=== PATIENT | female | born 1990 | race Caucasian/White ===

== ENCOUNTER 2021-10-13 18:32 | Emergency (ER) | payer OTHER, SELFPAY ==
[2021-10-13 18:41] VITALS: BP 138/95; PULSE 90; RESP 16; TEMP 36.9; O2SAT 99
--- NOTE | 2021-10-13 18:49 | ED.URI ---
HPI - URI/Sore Throat General Chief Complaint: Upper Respiratory Infection Stated Complaint: ear pain/sore throat/cp/cough Time Seen by Provider: 10/13/21 18:49 Source: patient Mode of arrival: ambulatory Limitations: no limitations History of Present Illness HPI Narrative: Ashley Genao is a 31 yo female with sinus congestion and headache cough congestion states she feels poorly this started on Monday night. She had diagnosed COVID 3 weeks ago when she had little cough and loss of taste but she says she does not feel as bad as she does now and she recovered after she had couple days of symptoms. She smokes cigarettes Related Data Allergies Allergy/AdvReac Type Severity Reaction Status Date / Time No Known Allergies Allergy Verified 04/11/17 15:38 Review of Systems Review of Systems: CONSTITUTIONAL: Denies fever, chills, sweats. Fatigue and body aches EYES: Denies visual changes, redness, discharge. ENT: Has rhinorrhea, has congestion, has sore throat, otalgia. CARDIOVASCULAR: Denies chest pain, palpitations, edema. RESPIRATORY: Denies dyspnea, wheezing, cough GASTROINTESTINAL: Denies abdominal pain, nausea, vomiting, diarrhea. GENITOURINARY: Denies dysuria, hematuria, abnormal discharge SKIN: Denies rash or itching. NEUROLOGIC: Denies numbness, or focal weakness. PSYCHIATRIC: Denies anxiety or depression. [facility] Past Medical History Medical History No acute medical problems Social History Social History (Updated 10/13/21 @ 19:00 by Nadja Perez CNP) Smoking status: Current every day smoker Tobacco type: cigarettes Alcohol intake: current Comments At time of signature, I agree with nursing past medical, surgical, social and family history. There is no relevant family history pertinent to the presenting complaint. Patient discussed having elevated blood pressure and follow-up with primary care physician Exam Narrative: GENERAL: This is a well-nourished, well-developed patient, in mild distress. HEAD: normocephalic, atraumatic. EYES: Sclera clear/white. Vision is grossly intact. EARS: External ears normal, auditory canals clear and without drainage, TMs normal without perforation. Hearing grossly intact. NOSE: External nose normal with nasal discharge, nares with redness, rhinorrhea. THROAT: Mucous membranes moist, posterior pharynx erythema NECK: Neck supple, non-tender CARDIOVASCULAR: Regular rate and rhythm without murmurs, gallops, or rubs. RESPIRATORY: Clear to auscultation. Breath sounds equal bilaterally. No wheezes, rales, or rhonchi. GASTROINTESTINAL: Abdomen soft, SKIN: warm, intact with no suspicious lesions or rash, good texture and turgor. NEURO: awake, alert, and oriented to person, place and time. There were no obvious focal neurologic abnormalities. Steady gait EXTREMITIES: Normal range of motion. BACK: Nontender without deformity Course Course Emergency Course: Patient comes to [facility] with complaints of congestion sore throat and feeling poorly she states feels she feels like her head is going to explode. She had COVID 3 weeks ago and recovered Patient swab for flu- negative Started on Mucinex, 4 days of prednisone Work excuse given Level of Care: Express Care Visit Vital Signs Vital signs: Vital Signs Temperature 98.4 F 10/13/21 18:41 Pulse Rate 90 10/13/21 18:41 Respiratory Rate 16 10/13/21 18:41 Blood Pressure 138/95 H 10/13/21 18:41 Pulse Oximetry 99 10/13/21 18:41 Temperature 98.4 F 10/13/21 18:41 Pulse Rate 90 10/13/21 18:41 Respiratory Rate 16 10/13/21 18:41 Blood Pressure 138/95 H 10/13/21 18:41 Pulse Oximetry 99 10/13/21 18:41 MDM - URI/Sore Throat Differential Diagnosis Differential diagnosis: Likely upper respiratory infection, otitis media, sinusitis, bronchitis, pharyngitis and other Lab Data Labs: Influenza A Screen Negative
== END 2021-10-13 19:20 | disposition home or self-care (01) ==
PROVIDERS: Emergency Provider Nurse Practitioner; PCP Family Medicine
DX: J32.9 Chronic sinusitis, unspecified (principal); F17.210 Nicotine dependence, cigarettes, uncomplicated; Z86.16 Personal history of COVID-19
CPT/HCPCS: 87804; 99213; G0463

== ENCOUNTER 2023-06-12 17:31 | Emergency (ER) | payer OTHER, SELFPAY ==
[2023-06-12] VITALS (10 sets, daily range): BP systolic 130–131; BP diastolic 76–102; PULSE 66–86; RESP 11–24; TEMP 36.2; O2SAT 98–100
--- NOTE | ~2023-06-12 | CT_ITS ---
EXAMINATION: CT abdomen pelvis w con DATE: 06/12/2023 21:54 INDICATION: Epigastric abdominal pain. Nausea, vomiting, and diarrhea. TECHNIQUE: Computed tomography (CT) of the abdomen and pelvis was performed with 100 mL Omnipaque 350 intravenous contrast. Automated exposure control and iterative reconstruction technique were employe d. The dose-length product was 1025.22 mGy-cm. COMPARISON: None. FINDINGS: The visualized portions of the lung bases demonstrate mild atelectasis. No pleural effusion . The heart size is normal. No pericardial effusion. The liver, gallbladder, spleen, pancreas, adrena l glands, and kidneys are normal. There are no dilated loops of bowel. The appendix is normal. There are no pathologically enlarged lymph nodes. There is no free intraperitoneal fluid. There is a small umbilical hernia containing fat. There is mild thoracic and lumbar spondylosis. IMPRESSION: 1. Small umbilical hernia containing fat. Reviewed, dictated and finalized at location E.
--- NOTE | 2023-06-12 20:37 | ED.ABDPAIN ---
HPI - Abdominal Pain General Chief Complaint: Abdominal Pain Stated Complaint: abd pain, N/V/D Time Seen by Provider: 06/12/23 20:31 History of Present Illness HPI narrative: Patient presents to the emergency department complaining of epigastric pain. Pain present for the past couple days. Gradual getting worse. Today she had nausea and vomiting just prior to arrival. Denies fevers and chills. Patient overall healthy. Denies sick contacts. She appears uncomfortable Related Data Allergies Allergy/AdvReac Type Severity Reaction Status Date / Time No Known Allergies Allergy Verified 04/11/17 15:38 Review of Systems Review of Systems: Review of systems negative except what is documented in the HPI [facility] Past Medical History Medical History No acute medical problems Social History Social History (Updated 10/13/21 @ 19:00 by Nadja Perez, PRODUCTION SPECIALIST) Smoking status: Current every day smoker Tobacco type: cigarettes Alcohol intake: current Exam Narrative: GENERAL: Well-appearing, well-nourished, and in no acute distress. Uncomfortable HEAD: Normocephalic, atraumatic. EYES: PERRLA and EOMI. ENT: Nares clear, no rhinorrhea or epistaxis. Mucous membranes moist. NECK: Supple. CHEST: Clear to auscultation. No respiratory distress. HEART: Regular rate and rhythm. ABDOMEN: Soft, nontender, nondistended. EXTREMITIES: Normal range of motion. No edema. SKIN: Warm, dry, no rash. NEURO: No focal deficits. Alert and oriented x3. PSYCH: Normal mood and affect. Course Course Emergency Course: Differential diagnosis includes but not limited to pancreatitis, acute cholecystitis, urinary tract infection, gastritis Vital Signs Vital signs: Vital Signs Temperature 36.2 C L 06/12/23 18:16 Pulse Rate 72 06/12/23 18:16 Respiratory Rate 20 06/12/23 18:16 Blood Pressure 131/76 06/12/23 18:16 Pulse Oximetry 100 06/12/23 18:16 Oxygen Delivery Room Air 06/12/23 18:16 Temperature 36.2 C L 06/12/23 18:16 Pulse Rate 76 06/12/23 21:34 Respiratory Rate 23 H 06/12/23 21:34 Blood Pressure 131/102 H 06/12/23 21:34 Pulse Oximetry 100 06/12/23 21:34 Oxygen Delivery Room Air 06/12/23 21:34 MDM - Abdominal Pain MDM Narrative Medical decision making narrative: Labs ordered and reviewed. CBC and CMP grossly unremarkable. Patient was slightly tachypneic in triage however this has improved. CT abdomen pelvis also negative for acute pathology. Only slight umbilical hernia noted. Shared decision making with patient regarding home medications and return precautions Lab Data 06/12/23 21:06 06/12/23 21:06 Labs: Lab Results 06/12/23 Range/Units 21:06 WBC 9.2 (4.5-10.0) K/mm3 RBC 4.92 (4.2-5.4) M/mm3 Hgb 15.3 H (12.0-15.0) g/dL Hct 45.4 (37.0-47.0) % MCV 92.3 (80-100) fl MCH 31.1 (26-34) pg MCHC 33.7 (32-36) g/dl RDW 12.5 (11.5-14.5) % Plt Count 350 (150-375) k/mm3 MPV 9.3 (7.4-10.4) fl Immature Gran % (Auto) 0.3 (0-0.5) % Neut % (Auto) 88.3 H (45.5-73.1) % Lymph % (Auto) 9.4 L (18.3-44.2) % Moore % (Auto) 1.8 L (2.6-8.5) % Eos % (Auto) 0.0 (0-4.4) % Baso % (Auto) 0.2 (0.2-1.2) % Lymph # (Auto) 0.86 L (0.9-3.2) K/mm3 Moore # (Auto) 0.2 (0.1-0.6) K/mm3 Eos # (Auto) 0.0 (0-0.3) K/mm3 Baso # (Auto) 0.0 (0.0-0.1) K/mm3 Abs Immat Gran (auto) 0.03 (0.00-0.031) K/mm3 Absolute Neuts (auto) 8.1 H (1.3-6.7) K/mm3 Absolute Nucleated RBC 0.0 (0.0-0.012) K/mm3 Nucleated RBC % 0.0 (0.0-0.2) % Sodium 139 (137-145) mmol/L Potassium 4.0 (3.4-5.0) mmol/L Chloride 102 (98-107) mmol/L Carbon Dioxide 23 (22-30) mmol/L Anion Gap 14 (8-16) mmol/L BUN 11 (7-17) mg/dL Creatinine 0.70 (0.7-1.0) mg/dL Estim Creat Clear Calc 120 ml/min Estimated GFR > 60 (59 - ) Glucose 121 H (65-110) mg/dL Calcium 10.5 H
[2023-06-12] MEDS: ONDANSETRON INJ 4 MG/2 ML VIAL IV PUSH (21:05)
[2023-06-12 21:12] LABS: Basophils Percent Auto 0.2 % (0.2-1.2); Hematocrit 45.4 % (37.0-47.0); Hemoglobin 15.3 g/dL (12.0-15.0); Immature Granulocyte Absolute 0.03 K/mm3 (0.00-0.031); Immature Granulocyte Percent A 0.3 % (0-0.5); Lymphocytes Absolute Auto 0.86 K/mm3 (0.9-3.2); Lymphocytes Percent Auto 9.4 % (18.3-44.2); Mean Corpuscular HGB Conc 33.7 g/dl (32-36); Mean Corpuscular Hemoglobin 31.1 pg (26-34); Mean Corpuscular Volume 92.3 fl (80-100); Mean Platelet Volume 9.3 fl (7.4-10.4); Monocytes Absolute Auto 0.2 K/mm3 (0.1-0.6); Monocytes Percent Auto 1.8 % (2.6-8.5); Neutrophils Absolute Auto 8.1 K/mm3 (1.3-6.7); Neutrophils Percent Auto 88.3 % (45.5-73.1); Platelet Count Result 350 k/mm3 (150-375); Red Blood Count 4.92 M/mm3 (4.2-5.4); Red Cell Distribution Width 12.5 % (11.5-14.5); White Blood Count 9.2 K/mm3 (4.5-10.0)
[2023-06-12 21:22] LABS: Alanine Aminotransferase 31 U/L (6-35); Alkaline Phosphatase 56 U/L (38-126); Anion Gap 14 mmol/L (8-16); Aspartate Amino Transferase 25 U/L (14-36); Bilirubin,Total 0.5 mg/dL (0.2-1.3); Blood Urea Nitrogen 11 mg/dL (7-17); Calcium 10.5 mg/dL (8.4-10.2); Carbon Dioxide 23 mmol/L (22-30); Chloride 102 mmol/L (98-107); Estimated CRCL calculation 120 ml/min; Estimated Glomerular Filt Rate > 60; Glucose 121 mg/dL (65-110); Lipase 85 U/L (23-300); Sodium 139 mmol/L (137-145)
[2023-06-12] MEDS: IBUPROFEN 600 MG TABLET PO (22:01)
[2023-06-12] MEDS: FAMOTIDINE 20 MG TABLET PO (22:01)
[2023-06-12] MEDS: ONDANSETRON HCL ODT 4 MG TABLET PO (22:01)
[2023-06-12] MEDS: SODIUM CHLORIDE 0.9% IV 1,000 ML 999 ML IV CONT (22:01)
[2023-06-12] MEDS: MORPHINE SULFATE (*CRX) 2 MG/ML INJ IV PUSH (23:04)
[2023-06-12] MEDS: METOCLOPRAMIDE HCL INJ 10 MG/2 ML VIAL IV PUSH (23:04)
--- NOTE | 2023-06-12 23:15 | PC.NURSE ---
report and care given to NAWAF Emmanuel. all questions answered.
[2023-06-13 00:05] LABS: Appearance Urine Clear (Clear); Bacteria Urine None Seen /hpf; Bilirubin Urine Negative (Negative); Blood Urine 2+ (Negative); Color Urine Yellow (Yellow); Glucose Urine UA Negative (Negative); Ketones Urine 4+ mg/dL (Negative); Leukocyte Esterase Ur Negative LEU/UL (Negative); Need Manual Microscopic Reviewed; Nitrate Urine Negative (Negative); Non Pathogenic Casts 0-2; Protein Urine 1+ mg/dL (Negative); RBC Urine 21-50 /hpf (0-2); Squamous Epithelial Cell Urine Few /hpf (Few); Urobilinogen Urine 0.2 mg/dL (<2.0)
[2023-06-13 00:08] LABS: Specific Grav Ur >= 1.099 (1.001-1.035)
[2023-06-13 00:15] VITALS: BP 143/80; PULSE 80; RESP 16; O2SAT 100
[2023-06-13 00:17] LABS: Add Urine Microscopic? YES
[2023-06-13 00:21] VITALS: O2SAT 100
[2023-06-13 00:31] VITALS: BP 127/89; O2SAT 99
[2023-06-13 00:37] VITALS: O2SAT 100
--- NOTE | 2023-06-17 13:02 | PC.NURSE ---
LATE ENTRY This note is being entered to document information to the patient's record. The following information was omitted on [06/12/2023], by [Carol Richard RN]. NS fluids ended @[id number].
== END 2023-06-13 00:45 | disposition home or self-care (01) ==
LOC: ANHED 22:22
PROVIDERS: Emergency Provider Emergency Medicine; PCP Family Medicine
DX: R10.13 Epigastric pain (principal); R11.2 Nausea with vomiting, unspecified; F17.210 Nicotine dependence, cigarettes, uncomplicated; K42.9 Umbilical hernia without obstruction or gangrene
CPT/HCPCS: 36415; 74177; 80053; 81001; 83690; 85025; 87086; 96361; 96374; 96375; 99284; A9270; J2270; J2405; J2765; J7030; Q9967